=== PATIENT | female | born 1985 | race Asian ===

== ENCOUNTER 2016-11-29 20:02 | Observation (INO) | payer OTHER ==
[2016-12-01] MEDS ORDERED: PRENATAL TABLE1 EAC2 PO (09:02)
== END 2016-11-30 16:30 ==
LOC: CBCO 20:02 → GNO 11-30 00:18
PROVIDERS: ADMIT Specialist
DX: O47.1 False labor at or after 37 completed weeks of gestation (principal); Z3A.39 39 weeks gestation of pregnancy
CPT/HCPCS: 81001; 96360; 96372; G0378; G0463; J0595; J2270; J7120

== ENCOUNTER 2016-12-01 02:12 | Inpatient (IN) | payer OTHER ==
[~2016-12-01] VITALS: Ht 167.6 cm; Wt 80.7 kg
[2016-12-01] MEDS ORDERED: PRENATAL TABLE1 EAC2 PO (09:02)
[2016-12-01 09:04] LABS: ABSOLUTE BASOPHIL COUNT 0 /CUMM (0.0-0.2); ABSOLUTE EOSINOPHIL COUNT 0 /CUMM (0.0-0.7); ABSOLUTE GRANULOCYTE CT 9.6 /CUMM (1.4-6.5); ABSOLUTE LYMPH COUNT 1.1 /CUMM (1.2-3.4); ABSOLUTE MONOCYTE COUNT 0.6 /CUMM (0.10-0.60); BASOPHIL % 0.3 % (0.0-2.0); EOSINOPHIL % 0.3 % (0-5); HEMATOCRIT 34.2 % (37-47); MEAN CORPUSCULAR HGB 28.9 PG (27.0-31.0); MEAN CORPUSCULAR HGB CONC 34.1 G/DL (33.0-37.0); MEAN CORPUSCULAR VOLUME 84.9 FL (81.0-99.0); MEAN PLATELET VOLUME 8.7 FL (7.4-10.4); PLATELET COUNT 153 /CUMM (130-400); RBC DISTRIBUTION WIDTH 14.3 % (11.5-14.5); RED BLOOD CELL CT 4.03 /CUMM (4.20-5.40); WHITE BLOOD CELL COUNT 11.3 /CUMM (4.8-10.8)
--- NOTE | 2016-12-01 09:10 | History & Physical ---
General Information and HPI MD Statement: I have seen and personally examined NICOLE PRIDE and documented this H&P. The patient is a 31 year old female at [39] weeks and [5] days gestation who presented with a chief complaint of [LABOR]. History of Present Illness: ACTIVE LABOR; CARE COMPLETE. THERAPEUTIC REST X 2. 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 Cardiovascular: Reports: no symptoms. Respiratory: Reports: no symptoms. GI: Reports: no symptoms. Genitourinary: Reports: see HPI. Musculoskeletal: Reports: back pain. Skin: Reports: no symptoms. Neurological/Psychological: Reports: no symptoms. Hematologic/Endocrine: Reports: no symptoms. Immunologic/Allergic: Reports: no symptoms. All Other Systems: Reviewed and Negative Exam & Diagnostic Data Last 24 Hrs of Vital Signs/I&O Intake & Output 07/ 1600 07/10 0800 07/10 0000 Intake Total Output Total Balance Patient 178 lb Weight Obstetric Exam Wgt Gained During : 35 Pelvimetry: GYNECOID Dilation (cm): 3 Effacement (%): 100 Station: -1 Membranes: intact Fluid: unknown Fundal Height (cm): 40 Multiple Gestation? No Contractions: Q3-5 #1 - FHR Baseline: 130 Category: 1 Estimated Weight: 7.5 Presentation: CEPHALIC Patient for Induction? Yes Galicia Score Galicia Score Response Value Cervix Position: anterior 2 Cervix Consistency: soft 2 Cervix Effacement: >80% 3 Cervix Dilation: 3-4 cm 2 Cervix Station: -1 2 Total 11 Physical Exam: HEENT:NCAT CHEST: CTA CV: NL S1S2 ABD: GRAVID, CEPHALIC, EFW 7.5 EXT: NO C/C/E NEURO: NONFOCAL Labs Blood Type & Rh: O POS Antibody Screen: NEG Hct/Hgb & Platelets #1: 13.39/253 Hct/Hgb & Platelets #2: 1235/194 Rubella: NEG VDRL #1: NR VDRL #2: NR HbsAg: NEG HIV #1: NEG HIV #2 NEG 1 Hr P 3 Hr P/161/130/76 Group B Strep: POSITIVE Initial Ultrasound: WNL Anatomy Ultrasound: WNL Ultrasound for EFW: 6.5 Genetic Testing: NEG Last 24 Hrs of Labs/Vishal: Laboratory Tests 12/01/16 0845: CBC w Diff Pending, WBC Pending, RBC Pending, Hgb Pending, Hct Pending, MCV Pending, MCH Pending, RDW Pending, Plt Count Pending, MPV Pending, Gran % Pending, Lymphocytes % Pending, Monocytes % Pending, Eosinophils % Pending, Basophils % Pending, Absolute Granulocytes Pending, Absolute Lymphocytes Pending , Absolute Monocytes Pending, Absolute Eosinophils Pending, Absolute Basophils Pending, PUBS MCHC Pending 12/01/16 0302: Membrane Rupture NEGATIVE Assessment/Plan Assessment/Plan: LABOR, GBS IV PCN PITOCIN AUGMENTATIOIN As Ranked By This Provider Problem List: 1. Core Measures/Miscellaneous Venous Thromboembolism VTE Risk Factors: / VTE Contraindications: No Contraindications VTE Diagnosis: No Beta Lawrence Is Beta Lawrence a Home Med? No Antibiotics Is Patient on Antibiotics? Yes
[2016-12-01 09:19] LABS: GRANULOCYTE % 84.9 % (42.2-75.2)
[2016-12-01 16:46] LABS: ABSOLUTE BASOPHIL COUNT 0 /CUMM (0.0-0.2); ABSOLUTE EOSINOPHIL COUNT 0 /CUMM (0.0-0.7); ABSOLUTE GRANULOCYTE CT 11.3 /CUMM (1.4-6.5); ABSOLUTE LYMPH COUNT 1.4 /CUMM (1.2-3.4); ABSOLUTE MONOCYTE COUNT 0.8 /CUMM (0.10-0.60); BASOPHIL % 0.3 % (0.0-2.0); EOSINOPHIL % 0.2 % (0-5); HEMATOCRIT 34.9 % (37-47); MEAN CORPUSCULAR HGB 29.2 PG (27.0-31.0); MEAN CORPUSCULAR HGB CONC 33.7 G/DL (33.0-37.0); MEAN CORPUSCULAR VOLUME 86.6 FL (81.0-99.0); MEAN PLATELET VOLUME 8.9 FL (7.4-10.4); PLATELET COUNT 154 /CUMM (130-400); RBC DISTRIBUTION WIDTH 14.3 % (11.5-14.5); RED BLOOD CELL CT 4.03 /CUMM (4.20-5.40); WHITE BLOOD CELL COUNT 13.5 /CUMM (4.8-10.8)
[2016-12-01 17:07] LABS: GRANULOCYTE % 83.5 % (42.2-75.2)
--- NOTE | 2016-12-01 18:10 | Labor & Delivery Summary ---
Delivery Summary Vaginal Delivery: Vaginal: vertex Episiotomy/Lacerations: Episiotomy/Lacerations: EPIS Placenta: Placenta: spontanteous, normal, 3 vessel, nuchal cord (x_) Baby's Weight: 7/15 Apgars - 1 Min: 8 Apgars - 5 Min: 9
[2016-12-02 08:37] LABS: ABSOLUTE BASOPHIL COUNT 0 /CUMM (0.0-0.2); ABSOLUTE EOSINOPHIL COUNT 0 /CUMM (0.0-0.7); ABSOLUTE LYMPH COUNT 1.2 /CUMM (1.2-3.4); ABSOLUTE MONOCYTE COUNT 0.6 /CUMM (0.10-0.60); BASOPHIL % 0.4 % (0.0-2.0); EOSINOPHIL % 0.6 % (0-5); GRANULOCYTE % 76.1 % (42.2-75.2); MEAN CORPUSCULAR HGB 28.9 PG (27.0-31.0); MEAN CORPUSCULAR HGB CONC 33.8 G/DL (33.0-37.0); MEAN CORPUSCULAR VOLUME 85.3 FL (81.0-99.0); MEAN PLATELET VOLUME 8.7 FL (7.4-10.4); PLATELET COUNT 130 /CUMM (130-400); RBC DISTRIBUTION WIDTH 14.3 % (11.5-14.5); RED BLOOD CELL CT 3.42 /CUMM (4.20-5.40); WHITE BLOOD CELL COUNT 7.9 /CUMM (4.8-10.8)
[2016-12-02 08:44] LABS: HEMATOCRIT 29.2 % (37-47)
[2016-12-03] MEDS ORDERED: IBUPROFEN800 M1 PO (09:58)
[2016-12-03] MEDS ORDERED: DOCUSATE SODIU100 M3 PO (09:58)
== END 2016-12-03 11:40 | DRG 560 ==
LOC: CBCO 02:12 → GNO 03:30
PROVIDERS: ADMIT Obstetrics & Gynecology
DX: O69.81X0 Labor and delivery complicated by cord around neck, without compression, not applicable or unspecified (principal); O99.824 Streptococcus B carrier state complicating childbirth; Z3A.39 39 weeks gestation of pregnancy; Z37.0 Single live birth
CPT/HCPCS: GNOS; 36415; 81001; 84112; 87086; 96360; 96372; 96374; G0378; G0463; J0131; J1580; J1885; J7120

== ENCOUNTER 2017-12-16 09:25 | Emergency (ER) | payer OTHER ==
[~2017-12-16] VITALS: Ht 167.6 cm; Wt 60.8 kg
[~2017-12-16 09:25] MED LIST: DOCUSATE SODIU100 M3 PO; IBUPROFEN800 M1 PO; MULTI-VITAMIN1 EACH PO; PRENATAL TABLE1 EAC2 PO
[2017-12-16 11:44] VITALS: BP 115/76
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
--- NOTE | 2017-12-16 12:52 | RADIOLOGY REPORT ---
EXAMINATION: XR ELBOW, RIGHT CLINICAL INFORMATION: Pain. Presumptive diagnosis of fracture. COMPARISON: None TECHNIQUE: Four views of the right elbow. FINDINGS: There is abnormal elevation of the anterior fat pad, consistent with a elbow joint effusion. This is suspicious for a subtle occult fracture, though no definite acute fracture or dislocation is seen. No radiopaque foreign body is seen in the soft tissues. No soft tissue calcifications or significant degenerative change is noted. IMPRESSION: 1. Small elbow joint effusion is seen, raising the suspicion of a subtle occult fracture, although no definite fracture deformity is appreciated on the images obtained. Recommend close clinical correlation and follow-up plain films in 7-10 days to assess for subtle interval healing changes. 2. Right elbow joint otherwise unremarkable.
== END 2017-12-16 13:19 ==
LOC: ERH 09:25
DX: S59.901A Unspecified injury of right elbow, initial encounter (principal); V89.2XXA Person injured in unspecified motor-vehicle accident, traffic, initial encounter
CPT/HCPCS: 73080-RT